=== PATIENT | male | born 1950 | race Caucasian/White ===

== ENCOUNTER 2020-03-25 20:59 | Observation (INO) ==
[2020-03-25 21:29] LABS: Basophils % 0.1 %; Hemoglobin 15.5 g/dL (12.9-16.9); Immature Granulocytes % 0.3 % (0-4); Lymphocytes # 1.2 K/mcL (0.6-4.6); Lymphocytes % 12.8 %; Mean Corpuscular HGB Conc 35.2 g/dL (31.6-35.5); Mean Corpuscular Hemoglobin 32.4 pg (28.0-33.3); Mean Corpuscular Volume 91.9 fL (83.0-100.0); Mean Platelet Volume 9.8 fL (9.4-12.4); Monocytes # 0.3 K/mcL (0.0-1.3); Monocytes % 2.8 %; Neutrophils # 8.1 K/mcL (1.6-8.9); Platelet Count 282 K/mcL (140-400); Red Blood Count 4.79 M/mcL (4.19-5.50); Red Cell Distribution Width 11.3 % (11.5-14.5); White Blood Count 9.7 K/mcL (4.3-11.1)
[2020-03-25 21:34] LABS: INR 1.1
[2020-03-25 21:37] LABS: Activated Partial Thrombo Time 31.2 Seconds (26.0-36.0)
[2020-03-25 21:38] LABS: VBG HCO3 27 mEq/L (21-27); VBG PCO2 43 mmHg (41-51); VBG PO2 56 mmHg (25-50)
[2020-03-25 21:41] LABS: Bilirubin,Urine Negative (Negative); Blood,Urine Trace-intact (Negative); Clarity,Urine Clear (Clear); Color,Urine Yellow (Yellow); Glucose,Urine (UA) 100 mg/dL (Normal); Ketones,Urine Negative (Negative); Leukocyte Esterase,Urine Negative (Negative); Nitrite,Urine Negative (Negative); PH,Urine 7.5 pH Units (5.0-8.0); Protein,Urine Negative (Neg-Trace); Urobilinogen,Urine Normal (Normal)
[2020-03-25 21:42] LABS: Troponin I < 0.03 ng/mL (< 0.04)
[2020-03-25 21:44] LABS: Squamous Epithelial Cell,Urine Few per hpf (None-Few); WBC,Urine 0-3 per hpf (0-3)
[2020-03-25 21:45] LABS: Albumin 4.2 g/dL (3.5-5.7); Albumin/Globulin Ratio 1.4 (1.1-2.2); Bilirubin,Direct 0.1 mg/dL (0.0-0.2); Bilirubin,Indirect 0.5 mg/dL (0.0-1.0); Bilirubin,Total 0.6 mg/dL (0.3-1.0); Total Protein 7.2 g/dL (6.4-8.9)
[2020-03-25 21:45] LABS: Bacteria,Urine None Seen per hpf (None-Few)
[2020-03-25 21:46] LABS: BUN/Creatinine Ratio 12 (6-26); Blood Urea Nitrogen 8 mg/dL (8-23); Calcium 9.8 mg/dL (8.6-10.3); Carbon Dioxide 28 mEq/L (23-29); Chloride 94 mEq/L (98-107); Glucose 201 mg/dL (70-105); Osmolality,Calculated 276 (280-300); Potassium 3.1 mEq/L (3.5-5.1); Sodium 131 mEq/L (136-145); eGFR For African Americans > 60 (> 60); eGFR For Non-African Americans > 60 (> 60)
[2020-03-25] MEDS ORDERED: Isovue-370 500 ML BOTTLE IVP ONE (21:50)
[2020-03-25] MEDS ORDERED: *HR* LORazepam 1 MG TABLET PO ONE (21:58)
[2020-03-26] MEDS ORDERED: Famotidine 20 MG TABLET PO SCH (00:15)
[2020-03-26] MEDS ORDERED: Famotidine 20 MG TABLET PO ONE (00:15)
[2020-03-26] MEDS ORDERED: Aspirin 81 MG TAB.CHEW PO ONE (00:22)
[2020-03-26] MEDS ORDERED: Mag Hydrox/Al Hydrox/Simeth 30 ML UDC PO PRN (00:57)
[2020-03-26] MEDS ORDERED: Ondansetron 4 MG/2 ML VIAL IVP PRN (00:57)
[2020-03-26] MEDS ORDERED: Acetaminophen 325 MG TABLET PO PRN (00:57)
[2020-03-26] MEDS ORDERED: Naloxone 0.4 MG/ML INJ IVP PRN (00:57)
[2020-03-26] MEDS: Gabapentin 300 MG CAPSULE PO SCH ×2 (08:44→14:53)
[2020-03-26] MEDS: Dorzolamide OPTH 10 ML BOTTLE BOTH EYES SCH ×2 (08:46→14:53)
[2020-03-26] MEDS ORDERED: *HR* Enoxaparin 40 MG/0.4 ML SYRINGE SQ SCH (09:00)
[2020-03-26] MEDS ORDERED: lisinopriL 20 MG TABLET PO SCH (09:00)
[2020-03-26] MEDS ORDERED: Aspirin Enteric Coated 81 MG Tablet PO SCH (09:00)
[2020-03-26] MEDS ORDERED: hydroCHLOROthiazide 25 MG TABLET PO SCH (09:00)
[2020-03-26] MEDS ORDERED: amLODIPine 5 MG TABLET PO SCH (09:00)
[2020-03-26 09:07] LABS: Basophils % 0.2 %; Eosinophils # 0.1 K/mcL (0.0-0.6); Eosinophils % 0.6 %; Hematocrit 38.4 % (37.5-50.1); Hemoglobin 13.5 g/dL (12.9-16.9); Immature Granulocytes % 0.3 % (0-4); Lymphocytes # 1.7 K/mcL (0.6-4.6); Mean Corpuscular HGB Conc 35.2 g/dL (31.6-35.5); Mean Corpuscular Hemoglobin 32.8 pg (28.0-33.3); Mean Corpuscular Volume 93.4 fL (83.0-100.0); Mean Platelet Volume 9.9 fL (9.4-12.4); Monocytes % 10.3 %; Neutrophils # 6.8 K/mcL (1.6-8.9); Platelet Count 238 K/mcL (140-400); Red Blood Count 4.11 M/mcL (4.19-5.50); Red Cell Distribution Width 11.6 % (11.5-14.5); Segmented Neutrophils % 70.6 %; White Blood Count 9.6 K/mcL (4.3-11.1)
[2020-03-26 09:22] LABS: Alanine Aminotransferase 21 Units/L (7-52); Albumin 3.4 g/dL (3.5-5.7); Albumin/Globulin Ratio 1.4 (1.1-2.2); Alkaline Phosphatase 57 Units/L (34-104); Aspartate Amino Transferase 14 Units/L (13-39); BUN/Creatinine Ratio 12 (6-26); Bilirubin,Total 0.5 mg/dL (0.3-1.0); Blood Urea Nitrogen 9 mg/dL (8-23); Calcium 9.1 mg/dL (8.6-10.3); Carbon Dioxide 28 mEq/L (23-29); Chloride 100 mEq/L (98-107); Globulin 2.5 g/dL (2.4-3.5); Glucose 87 mg/dL (70-105); Osmolality,Calculated 278 (280-300); Potassium 3.5 mEq/L (3.5-5.1); Sodium 135 mEq/L (136-145); Total Protein 5.9 g/dL (6.4-8.9); eGFR For African Americans > 60 (> 60); eGFR For Non-African Americans > 60 (> 60)
[2020-03-26 11:46] VITALS: BP 132/69
== END 2020-03-26 16:21 | disposition home or self-care (01) ==
LOC: EMEROOGRE 20:59 → INPGRE 20:59 → SUATTDRO 03-26 00:43 → INPGRE 03-26 00:56
PROVIDERS: ADMIT Internal Medicine; ATTEND Family Medicine